=== PATIENT | male | born 1980 | race Caucasian/White ===

== ENCOUNTER 2019-03-03 15:29 | Emergency (ER) | payer SELFPAY ==
[~2019-03-03] VITALS: Ht 180 cm; Wt 97.9 kg
[2019-03-03] MEDS ORDERED: DEXAMETHASONE 4 MG/ML SDV (DECADRON) IM ONE (16:15)
[2019-03-03] MEDS ORDERED: DIAZEPAM 5 MG (VALIUM) TABLET PO ONE (16:15)
[2019-03-03] MEDS ORDERED: BUP/EPI 0.25% 1:200,000 (MARCAINE) 30 ML VIAL INJ ONE (16:15)
[2019-03-03] MEDS ORDERED: KETOROLAC 60 MG/2 ML VIAL IM ONE (16:15)
[2019-03-03] MEDS ORDERED: oxyCODONE/APAP 5/325MG (PERCOCET 5) TABLET PO ONE (16:15)
[2019-03-03] MEDS ORDERED: BUPIVACAINE 0.5% 30 ML (SENSORCAINE) VIAL ONE (16:17)
--- NOTE | 2019-03-03 16:28 | ED General ---
General Chief Complaint: Back Problems Stated Complaint: RT SIDE PAIN Nursing Triage Note: Was twisting two days ago and had sharp pain in his back. is having pain shooting down his R buttock into leg. Is rating pain at 10/10 and states he has been unable to sleep due to the pain Nursing Sepsis Screen: No Definite Risk History of Present Illness Date Seen by Provider: Mar 03, 2019 Time Seen by Provider: 16:22 Initial Comments Patient presenting to emergency department for evaluation of back pain that has been worsening since last Saturday. He said that he was trying to work on his car and he was kneeling and twisted his torso and felt a pain in his low back and it has been radiating down the back of his right leg since then. He has felt spasms in intense pain and has been unable to get comfortable despite trying Tylenol and ibuprofen. He has continued to work and he says he lifts heavy objects at work and has not been able to do very well his job so his boss did not want him to come back until he was seen. He denies any known trauma, just the overuse. He denies any unilateral weakness numbness tingling saddle anesthesia bowel or bladder incontinence. He says he has had this issue before and he was out of work for 2 weeks. He appears uncomfortable but is nontoxic with normal vital signs. Allergies and Home Medications Allergies Coded Allergies: No Known Drug Allergies (Unverified , 03/03/19) Patient Home Medication List Home Medication List Reviewed: Yes Review of Systems Review of Systems Constitutional: no symptoms reported Respiratory: no symptoms reported Cardiovascular: no symptoms reported Gastrointestinal: no symptoms reported Genitourinary: no symptoms reported Musculoskeletal: back pain Skin: no symptoms reported Psychiatric/Neurological: No Symptoms Reported All Other Systems Reviewed Negative Unless Noted: Yes Past Vgkjsbj-Sgrpjv-Azfxok Hx Patient Social History Recent Foreign Travel: No Contact w/Someone Who Travel: No Recent Infectious Disease Expo: No Physical Exam Vital Signs Vital Signs - First Documented 03/03/19 16:08 Temp 36.7 Pulse 101 Resp 26 B/P (MAP) 120/88 (99) Pulse Ox 100 Capillary Refill : Less Than 3 Seconds Height, Weight, BMI Height: '" Weight: lbs. oz. kg; 30.00 BMI Method: General Appearance: No Apparent Distress, WD/WN Neck: Non Tender, Supple Respiratory: No Respiratory Distress Cardiovascular: Regular Rate, Rhythm Gastrointestinal: Non Tender, Soft Back: No Vertebral Tenderness, Muscle Spasm (R lumbar paraspinal spasm and ttp.) Neurologic/Psychiatric: Alert, Oriented x3, No Motor/Sensory Deficits, Normal Mood/Affect, construction operations manager II-XII Norm as Tested Skin: Warm/Dry Procedures/Interventions Progress Right lumbar trigger point injection. Right L3-L4 and L4-L5 right paraspinal regions were cleansed with chlorhexidine and then approximately 4 cc of 0.5% Marcaine were injected into the 2 areas with no significant pain. No complications noted. Progress/Results/Core Measures Suspected Sepsis Recent Fever Within 48 Hours: No Infection Criteria Present: None New/Unexplained Altered Menta: No Sepsis Screen: No Definite Risk SIRS Temperature: Pulse: 101 Respiratory Rate: 26 Blood Pressure 120 /88 Mean: 99 Results/Orders My Orders Orders - CLAUDIA DENG DO Oxycodone/Apap 5/325mg Tablet (Percocet (03/03/19 16:15) Diazepam Tablet (Valium Tablet) (03/03/19 16:15) Ketorolac Injection (Toradol Injection) (03/03/19 16:15) Dexamethasone Injection (Decadron Inject (03/03/19 16:15) Bupivacaine 0.25% W/Epi Inj (Marcaine 0. (03/03/19 16:15) Bupivacaine 0.5% Injection (Sensorcaine (03/03/19 16:17) Vital Signs/I&O 03/03/19 16:08 Temp 36.7 Pulse 101 Resp 26 B/P (MAP) 120/88 (99) Pulse Ox 100 Capillary Refill : Less Than 3 Seconds Blood Pressure Mean: 99 POS Progress Note : Progress Note Patient with lumbar back pain with lumbar radiculopathy noted. No red flag signs or symptoms necessitating an emergent MRI. Patient was given Decadron Toradol Percocet and Valium with improvement in pain. I also did a trigger point injection in his low back. I will prescribe him morphine for pain told him to follow primary care provider within 2-3 days and come back to the ED sooner if worsening pain or new-onset weakness numbness tingling or other general concerns. Patient aware and agreeable with plan for discharge and verbalized understanding of the need for short-term follow-up and strict ED return precautions described as above. Departure Impression Primary Impression: Lumbar radiculopathy Additional Impression: Lumbar sprain Disposition: 01 HOME, SELF-CARE Condition: Stable Departure-Patient Inst. Referrals: NO,LOCAL PHYSICIAN (PCP) Primary Care Physician Patient Instructions: Radiculopathy (DC), Lumbar Muscle Strain (DC) Add. Discharge Instructions: All discharge instructions reviewed with patient and/or family. Voiced understanding. Take 600mg of ibuprofen every 6 hours and 650mg of tylenol every 6 hours. Use OTC lidocaine patches. Scripts Ondansetron (Ondansetron Odt) 4 Mg Tab.rapdis 4 MG PO Q6H PRN for NAUSEA/VOMITING-1ST LINE, #10 TAB Prov: CLAUDIA DENG DO 03/03/19 Morphine Sulfate (Morphine Sulfate) 15 Mg Tablet 15 MG PO TID PRN for PAIN-SEVERE for 7 Days, #10 TAB Prov: CLAUDIA DENG DO 03/03/19 Work/School Note: Work Release Form Date Seen in the Emergency Department: Mar 03, 2019 Return to Work: Mar 05, 2019 Restrictions: No Restrictions Restrictions: No heavy lifting over 10 pounds until cleared by your doctor CLAUDIA DENG DO Mar 03, 2019 16:28 POS
[2019-03-03] MEDS ORDERED: MORP15TA PO (16:33)
[2019-03-03] MEDS ORDERED: ONDA4TAB11 PO (16:33)
[2019-03-03 16:44] VITALS: BP 120/88
[2019-03-03] MEDS ORDERED: BUPIVACAINE 0.5% 30 ML (SENSORCAINE) VIAL INJ ONE (16:45)
== END 2019-03-03 16:45 | disposition home or self-care (01) ==
LOC: EDUNIT# 15:29 → ER FS 15:30
DX: S33.5XXA Sprain of ligaments of lumbar spine, initial encounter (principal); M54.16 Radiculopathy, lumbar region; X50.1XXA Overexertion from prolonged static or awkward postures, initial encounter
CPT/HCPCS: 96372; 99284

== ENCOUNTER 2019-03-06 15:23 | Observation (INO) | payer SELFPAY ==
[~2019-03-06] VITALS: Ht 177.8 cm; Wt 95.6 kg
[~2019-03-06 15:23] MED LIST: MORP15TA PO; ONDA4TAB11 PO
[2019-03-06] MEDS ORDERED: fentaNYL INJECTION 100 MCG/2 ML AMP IVP ONE (15:30)
--- NOTE | 2019-03-06 15:43 | ED Back Pain ---
General Stated Complaint: RT LEG PAIN History of Present Illness Date Seen by Provider: Mar 06, 2019 Time Seen by Provider: 15:38 Initial Comments 38-year-old male the history he gives me today is that about 5 days ago he was working on a gate and somehow maneuvered himself in such a way that he started to have pain from his lower back severely into the right leg to about the knee he was seen in this department 3 days ago and underwent local back injections and got IM medication for his back pain he was prescribed morphine which he says has been of no benefit today he didn't take anything and presented here rather dramatically he denies loss of bowel or bladder control says his left leg is functioning normally unclear if there is any problem with the strength in the right leg he won't use it because of the pain is curled up into a position on his right side Patient denies history of prior such difficulties, has never had back surgery says his only prior hospitalization as an adult was for an appendectomy t had a couple of hospitalizations as a child one for severe strep has no ongoing medical issues aside from this back and leg pain Allergies and Home Medications Allergies Coded Allergies: No Known Drug Allergies (Unverified , 03/03/19) Home Medications Morphine Sulfate 15 Mg Tablet, 15 MG PO TID PRN for PAIN-SEVERE Prescribed by: CLAUDIA DENG on 03/03/19 1633 Ondansetron 4 Mg Tab.rapdis, 4 MG PO Q6H PRN for NAUSEA/VOMITING-1ST LINE Prescribed by: CLAUDIA DENG on 03/03/19 1633 Patient Home Medication List Home Medication List Reviewed: Yes Review of Systems Constitutional: no symptoms reported; No fever EENTM: no symptoms reported Respiratory: no symptoms reported Cardiovascular: no symptoms reported Gastrointestinal: no symptoms reported Genitourinary: no symptoms reported Musculoskeletal: other (severe pain right lower back rad to knee) Skin: no symptoms reported Past Beqjqde-Sxqmzq-Alwrrz Hx Patient Social History Type Used: Cigarettes 2nd Hand Smoke Exposure: Yes Recent Foreign Travel: No Contact w/Someone Who Travel: No Recent Hopitalizations: No Seasonal Allergies Seasonal Allergies: No Past Medical History Surgeries: Yes Appendectomy Respiratory: No Cardiac: No Neurological: No Genitourinary: No Gastrointestinal: No Musculoskeletal: Yes Chronic Back Pain Endocrine: No HEENT: No Cancer: No Psychosocial: No Integumentary: No Physical Exam Vital Signs Vital Signs - First Documented 03/06/19 15:25 Temp 36.8 Pulse 75 Resp 22 B/P (MAP) 116/63 (80) Pulse Ox 99 O2 Delivery Room Air Capillary Refill : Height, Weight, BMI Height: '" Weight: lbs. oz. kg; 30.00 BMI Method: General Appearance: Moderate Distress HEENT: PERRL/EOMI Neck: Supple Cardiovascular: Regular Rate, Rhythm Respiratory: Lungs Clear Gastrointestinal: Non Tender, Soft Extremity: No Pedal Edema, Other (mild tenderness over right SI joint strong plantar and dorsiflexion bilaterally at the ankles muscle tone normal straight leg raising painful on right) Neurologic/Psychiatric: Alert, Oriented x3 Progress/Results/Core Measures Results/Orders Lab Results Laboratory Tests Test 03/06/19 15:43 Range/Units White Blood Count 10.6 4.3-11.0 10^3/uL Red Blood Count 5.07 4.35-5.85 10^6/uL Hemoglobin 14.0 13.3-17.7 G/DL Hematocrit 43 40-54 % Mean Corpuscular Volume 84 80-99 FL Mean Corpuscular Hemoglobin 28 25-34 PG Mean Corpuscular Hemoglobin Concent 33 32-36 G/DL Red Cell Distribution Width 13.5 10.0-14.5 % Platelet Count 416 H 130-400 10^3/uL Mean Platelet Volume 8.5 7.4-10.4 FL Neutrophils (%) (Auto) 65 42-75 % Lymphocytes (%) (Auto) 23 12-44 % Monocytes (%) (Auto) 10 0-12 % Eosinophils (%) (Auto) 2 0-10 % Basophils (%) (Auto) 1 0-10 % Neutrophils # (Auto) 6.9 1.8-7.8 X 10^3 Lymphocytes # (Auto) 2.4 1.0-4.0 X 10^3 Monocytes # (Auto) 1.0 0.0-1.0 X 10^3 Eosinophils # (Auto) 0.2 0.0-0.3 10^3/uL Basophils # (Auto) 0.1 0.0-0.1 10^3/uL Sodium Level 143 135-145 MMOL/L Potassium Level 3.7 3.6-5.0 MMOL/L Chloride Level 106 98-107 MMOL/L Carbon Dioxide Level 23 21-32 MMOL/L Anion Gap 14 5-14 MMOL/L Blood Urea Nitrogen 17 7-18 MG/DL Creatinine 0.86 0.60-1.30 MG/DL Estimat Glomerular Filtration Rate > 60 BUN/Creatinine Ratio 20 Glucose Level 143 H 70-105 MG/DL Calcium Level 9.3 8.5-10.1 MG/DL Corrected Calcium 9.2 8.5-10.1 MG/DL Total Bilirubin 0.2 0.1-1.0 MG/DL Aspartate Amino Transf (AST/SGOT) 10 5-34 U/L Alanine Aminotransferase (ALT/SGPT) 10 0-55 U/L Alkaline Phosphatase 59 40-136 U/L Total Protein 7.2 6.4-8.2 GM/DL Albumin 4.1 3.2-4.5 GM/DL My Orders Orders - ABDON FREITAS MD Iv Heplock-Insert (Order) (03/06/19 15:29) Cbc With Automated Diff (03/06/19 15:29) Comprehensive Metabolic Panel (03/06/19 15:29) Fentanyl Injection (Sublimaze Injection (03/06/19 15:30) Ct Lumbar Spine Wo (03/06/19 15:42) Hydromorphone Injection (Dilaudid Inject (03/06/19 16:15) Methylprednisolone Sod Succ (Solu-Medrol (03/06/19 16:15) Medications Given in ED Current Medications Medications Dose Ordered Sig/Yovanny Route Start Time Stop Time Status Last Admin Dose Admin Fentanyl Citrate 50 mcg ONCE ONCE IVP 03/06/19 15:30 03/06/19 15:32 DC 03/06/19 15:57 50 MCG Hydromorphone HCl 1 mg ONCE ONCE IV 03/06/19 16:15 03/06/19 16:16 DC 03/06/19 16:31 1 MG Vital Signs/I&O 03/06/19 15:25 Temp 36.8 Pulse 75 Resp 22 B/P (MAP) 116/63 (80) Pulse Ox 99 O2 Delivery Room Air Progress Progress Note : Progress Note Basic labs CBC and CMP are normal CT scan reading is as follows no acute osseous abnormality multiple multilevel disc bulges and Schmorl's nodes greater than expected for age multilevel foraminal stenosis most severe at L3-L4 on the right and L5-S1 on the left patient's symptoms would get seemed to correspond with the L3-L4 on the right Patient had no result from fentanyl Dilaudid 1 mg IV seemed to be somewhat helpful he appears that he is going to need hospitalization for pain control Departure Communication (Admissions) Time/Spoke to Admitting Phy: 17:[address] Reinoso hospitalist marketing communications manager will admit obs for pain control IV dilaudid Impression Primary Impression: Lumbar radiculopathy Disposition: ADMITTED INPATIENT Condition: Stable Admissions Decision to Admit Reason: Admit from ER (General) Decision to Admit/Date: Mar 06, 2019 Time/Decision to Admit Time: 17:10 Departure-Patient Inst. Referrals: NO,LOCAL PHYSICIAN (PCP) Primary Care Physician ABDON FREITAS MD Mar 06, 2019 15:43 POS
[2019-03-06 15:54] LABS: BASOPHILS % (AUTO) 1 % (0-10); EOSINOPHILS # (AUTO) 0.2 10^3/uL (0.0-0.3); EOSINOPHILS % (AUTO) 2 % (0-10); HEMATOCRIT 43 % (40-54); LYMPHOCYTES # (AUTO) 2.4 X 10^3 (1.0-4.0); LYMPHOCYTES % (AUTO) 23 % (12-44); MEAN CORPUSCULAR HEMOGLOBIN 28 PG (25-34); MEAN CORPUSCULAR HGB CONC 33 G/DL (32-36); MEAN CORPUSCULAR VOLUME 84 FL (80-99); MEAN PLATELET VOLUME 8.5 FL (7.4-10.4); MONOCYTES % (AUTO) 10 % (0-12); NEUTROPHILS # (AUTO) 6.9 X 10^3 (1.8-7.8); NEUTROPHILS % (AUTO) 65 % (42-75); PLATELET COUNT 416 10^3/uL (130-400); RED CELL DISTRIBUTION WIDTH 13.5 % (10.0-14.5); WHITE BLOOD COUNT 10.6 10^3/uL (4.3-11.0)
[2019-03-06 15:55] LABS: BASOPHILS # (AUTO) 0.1 10^3/uL (0.0-0.1)
[2019-03-06] MEDS ORDERED: HYDROmorphone 2 MG/ML VIAL (DILAUDID) IV ONE (16:15)
[2019-03-06] MEDS ORDERED: methylPREDNISolone SOD SUCC 500 MG in NS (IVPB) 50 ML IV ONE (16:15)
--- NOTE | 2019-03-06 16:27 | Diagnostic Imaging Report ---
PROCEDURE: CT lumbar spine without contrast. TECHNIQUE: Multiple contiguous axial images were obtained through the lumbar spine without the use of intravenous contrast. Sagittal and coronal reformations were then performed. Auto Exposure Controls were utilized during the CT exam to meet ALARA standards for radiation dose reduction. INDICATION: Low back pain radiating into the right leg for five days. COMPARISON: None. FINDINGS: Alignment of the lumbar spine is normal with no spondylolisthesis. There are multilevel Schmorl's nodes, at the L2, L3, and L4 vertebral levels. The vertebral body heights are otherwise preserved. There is disc height loss at L2-L3 and L4-L5. No acute fracture is seen in the lumbar spine. There are disc bulges at multiple levels throughout the lumbar spine, most notable at L3-L4 and L4-L5. A small central disc protrusion is also seen at L4-L5. No high-grade spinal canal stenosis is appreciated. There is severe bilateral foraminal stenosis at L3-L4, right worse than left. There is moderate foraminal stenosis at L4-L5 bilaterally. There is mild right and marked left foraminal stenosis at L5-S1. IMPRESSION: 1. No acute osseous abnormality is seen in the lumbar spine. 2. Multilevel disc bulges and Schmorl's nodes, somewhat greater than expected for age. This results in multilevel foraminal stenosis, most severe at L3-L4 on the right and L5-S1 on the left. Dictated by: Dictated on workstation # [id number]
[2019-03-06 16:37] LABS: ALANINE AMINOTRANSFERASE 10 U/L (0-55); ALBUMIN 4.1 GM/DL (3.2-4.5); ALKALINE PHOSPHATASE 59 U/L (40-136); BILIRUBIN,TOTAL 0.2 MG/DL (0.1-1.0); BUN/CREATININE RATIO 20; CALCIUM 9.3 MG/DL (8.5-10.1); CARBON DIOXIDE 23 MMOL/L (21-32); CHLORIDE 106 MMOL/L (98-107); CREATININE SERUM 0.86 MG/DL (0.60-1.30); GFR ESTIMATED > 60; GLUCOSE 143 MG/DL (70-105); POTASSIUM 3.7 MMOL/L (3.6-5.0); SODIUM 143 MMOL/L (135-145); TOTAL PROTEIN 7.2 GM/DL (6.4-8.2)
[2019-03-06] MEDS ORDERED: methylPREDNISolone 125 MG (Solu-MEDROL) VIAL ONE (17:28)
[2019-03-06] MEDS ORDERED: NS (IVPB) 100 ML ONE (17:29)
--- NOTE | 2019-03-06 19:20 | NUR ---
MEDARDO HIGUERA admitted to room 407-1, with an admitting diagnosis of intractable back pain, on 03/06/19 from [facility] ed via ems cot, accompanied by [facility] ems.MEDARDO HIGUERA introduced to surroundings, call light, bed controls, phone, TV, temperature control, lights, meal times, smoking policy, visitor policy, side rail policy, bathrooms and showers. Patient Rights given to patient in the handbook. MEDARDO HIGUERA verbalizes understanding that [facility] is not responsible for the loss or damage to any personal effects or valuables that are kept in the patients possessions during their hospitalization. The patient's plan of care was discussed with the pt, he agrees & denies any questions or concerns at this time. MEDARDO HIGUERA verbalizes understanding of Interdisciplinary Patient Education.
--- NOTE | 2019-03-06 19:20 | NUR ---
pt refused flu vaccine at time of admission-pt states that he does not want it at all during this admission
[2019-03-06] MEDS ORDERED: CATHETER FLUSH 10 ML SYR IV PRN (19:30)
[2019-03-06] MEDS: NS IV 1000 ML 1,000 ML IV SCH (19:55)
[2019-03-06] MEDS: HYDROmorphone 2 MG/ML VIAL (DILAUDID) IV PRN ×2 (19:55→21:55)
[2019-03-06 20:00] VITALS: BP 121/56
[2019-03-06 23:59] VITALS: BP 116/67
[2019-03-07] MEDS: HYDROmorphone 2 MG/ML VIAL (DILAUDID) IV PRN ×2 (00:35→04:39)
[2019-03-07 03:28] VITALS: BP 111/55
[2019-03-07] MEDS: NS IV 1000 ML 1,000 ML IV SCH ×2 (03:31→11:38)
[2019-03-07] MEDS ORDERED: ACETAMINOPHEN 325 MG TABLET PO PRN (08:00)
[2019-03-07] MEDS ORDERED: ANTACID SUSP 30 ML UDC (MYLANTA) PO PRN (08:00)
[2019-03-07] MEDS ORDERED: diphenhydrAMINE 50 MG/ML INJ (BENADRYL) IVP PRN (08:00)
[2019-03-07] MEDS ORDERED: MELATONIN 3 MG TABLET PO PRN (08:00)
[2019-03-07] MEDS ORDERED: BISACODYL 10 MG SUPP (DULCOLAX) PR PRN (08:00)
[2019-03-07] MEDS ORDERED: ENOXAPARIN 40 MG/0.4 ML (LOVENOX) SYR SC SCH (08:00)
[2019-03-07] MEDS ORDERED: POLYETHYLENE GLYCOL 17 GM (MIRALAX) PACK PO PRN (08:00)
[2019-03-07] MEDS ORDERED: HYDROmorphone 2 MG/ML VIAL (DILAUDID) IV PRN (08:00)
[2019-03-07] MEDS ORDERED: ONDANSETRON 4 MG (ZOFRAN) ORAL DISSOLVE TAB PO PRN (08:00)
[2019-03-07] MEDS ORDERED: ONDANSETRON 4 MG/2 ML (SDV) Z0FRAN IV PRN (08:00)
[2019-03-07 08:18] VITALS: BP 131/71
[2019-03-07] MEDS ORDERED: SENNOSIDES 8.6 MG (SENOKOT) TAB PO SCH (09:00)
[2019-03-07] MEDS ORDERED: DOCUSATE SODIUM 100 MG (COLACE) CAP PO SCH (09:00)
[2019-03-07] MEDS: GABAPENTIN 100 MG (NEURONTIN) CAP PO SCH ×2 (09:21→11:38)
[2019-03-07 11:14] VITALS: BP 126/60
--- NOTE | 2019-03-07 11:40 | Physical Therapy Evaluation ---
PT Evaluation-General Medical Diagnosis Admission Date Mar 06, 2019 at 17:30 Medical Diagnosis: intractable back pain Onset Date: Mar 06, 2019 Therapy Diagnosis Therapy Diagnosis: limited mobility Precautions Precautions/Isolations: Standard Precautions Weight Bear Status Right Lower Extremity: Right Weight Bearing/Tolerated Left Lower Extremity: Left Weight Bearing/Tolerated Referral Physician: Arleth Reason for Referral: Evaluation/Treatment Medical History Current History Working on a cabinet, turned and felt a sharp pain in the back and (R) LE. Could not stand or walk. Prior hx of low back pain 1-2 yrs ago. Reviewed History: Yes Social History Home: Single Level Current Living Status: Significant Other Prior Prior Level of Function SCALE: Activities may be completed with or without assistive devices. 5-Dvfqjvtlxt-eevuqnc completes the activity by him/herself with no assistance from a helper. 5-Set-up or Clean-up Assistance-helper sets up or cleans up; patient completes activity. [place] assists only prior to or following the activity. 4-Supervision or Touching Assistance-helper provides verbal cues and/or touching/steadying and/or contact guard assistance as patient completes activity. Assistance may be provided throughout the activity or intermittently. 3-Partial/Moderate Assistance-helper does LESS THAN HALF the effort. [place] lifts, holds or supports trunk or limbs, but provides less than half the effort. 2-Substantial/Maximal Assistance-helper does MORE THAN HALF the effort. [place] lifts or holds trunk or limbs and provides more than half the effort. 9-Nuzdpaeyw-cqsdni does ALL the effort. Patient does none of the effort to complete the activity. Or, the assistance of 2 or more helpers is required for the patient to complete the activity. If activity was not attempted, code reason: 7-Patient Refused. 9-Not Applicable-not attempted and the patient did not perform the activity before the current illness, exacerbation or injury. 10-Not Attempted due to Environmental Limitations-(lack of equipment, weather restraints, etc.). 88-Not Attempted due to Medical Conditions or Safety Concerns. Bed Mobility: 7 Transfers (B,C,W/C): 7 Gait: 7 Stairs: 7 Indoor Mobility (Ambulation): Independent Stairs: Independent Prior Devices Use: None PT Evaluation-Current Subjective (R) lumbar soreness, with no (R) LE pain elicited with AROM of the (B) LEs. Pain Numeric Pain Scale: 2 Location: Right Location Body Site: Back Pain Description: Ache Pt/Family Goals Return home Objective Patient Orientation: Person, Place, Time, Situation Problem Solving: Good ROM/Strength ROM Upper Extremities WFL ROM Lower Extremities WFL Strength Upper Extremities WFL Strength Lower Extremities WFL Neuromuscular (Tone, Coordination, Reflexes) Normal (B) UE and LE tone, normal reflexes, and intact sensation for (B) LEs. Sensory Vision: Wears Glasses Hearing: Functional Hand Dominance: Right Sensation Right Upper Extremit: Intact Sensation Left Upper Extremity: Intact Sensation Right Lower Extremit: Intact Sensation Left Lower Extremity: Intact Transfers Roll Left to Right (QC): 7 Sit to Lying (QC): 7 Lying to Sitting/Side of Bed(Q: 7 Sit to Stand (QC): 7 Gait Does the Patient Walk?: Yes Mode of Locomotion: Walk Anticipated Mode of Locomotion: Walk Distance: 3=150 ft Walk 10 feet (QC): 7 Walk 50 ft with 2 Turns(QC): 7 Walk 150 ft (QC): 7 Gait Assistive Device: None Wheelchair Training Does the Pt Use a Wheelchair?: No Balance Sitting Static: Normal Sitting Dynamic: Normal Standing Static: Normal Standing Dynamic: Good Assessment/Needs Pt was able to perform bed mobility, transfers, and ambulation (I) without eliciting lumbar pain. Rehab Potential: Good PT Short Term Goals Short Term Goals Time Frame: Mar 07, 2019 Additional Short Term Goals Able to continue with (I) mobility without further lumbar pain. PT Plan Treatment/Plan Treatment Plan: Discontinue PT, goals met Treatment Duration: Mar 07, 2019 Frequency: Estimated Hrs Per Day: .25 hour per day Patient and/or Family Agrees t: Yes Evaluate and discharged with pt (I) during all activity. Discharge Recommendations Plan Pt to benefit from a follow up visit with PT for back, core, and stretching program to be performed (I). Therapy Discharge Recommendati: Post Acute PT Time/GCodes Time In: 904 Time Out: 929 Total Billed Treatment Time: 25 Total Billed Treatment 1, osiris 25 YISEL WELDON PT Mar 07, 2019 11:40 POS
[2019-03-07] MEDS ORDERED: GABA-486 PO (12:36)
[2019-03-07] MEDS ORDERED: OXYC10TA7 PO (12:36)
[2019-03-07] MEDS ORDERED: ACET-2267 PO (12:36)
--- NOTE | 2019-03-07 12:41 | Discharge Summary ---
Discharge Summary Hospital Course Was the Problem List Reviewed?: Yes Problems/Dx: (1) Herniated lumbar intervertebral disc Status: Acute Final Diagnosis: Herniated lumbar intervertebral disc Hospital Course Date of Admission: Mar 06, 2019 at 17:30 Admission Diagnosis : Intractable back pain Family Physician/Provider: Date of Discharge: 03/07/19 Discharge Diagnosis: Herniated lumbar intervertebral disc Hospital Course: Sabino Ro is a 38yoM who presented to the ER in [place] with intractable back pain. He had been prescribed opiates for the pain but this was not helping. He was found to have multiple disc herniations in his lumbar spine. He was treated with pain medications and physical therapy and his pain resolved prior to discharge. He was started on scheduled Tylenol and Gabapentin with as needed Oxycodone. He is scheduled to establish with a primary care provider in [place]. He will continue physical therapy as an outpatient. Labs and Pending Lab Test: Laboratory Tests 03/06/19 15:43: White Blood Count 10.6, Red Blood Count 5.07, Hemoglobin 14.0, Hematocrit 43, Mean Corpuscular Volume 84, Mean Corpuscular Hemoglobin 28, Mean Corpuscular Hemoglobin Concent 33, Red Cell Distribution Width 13.5, Platelet Count 416H, Mean Platelet Volume 8.5, Neutrophils (%) (Auto) 65, Lymphocytes (%) (Auto) 23, Monocytes (%) (Auto) 10, Eosinophils (%) (Auto) 2, Basophils (%) (Auto) 1, Neutrophils # (Auto) 6.9, Lymphocytes # (Auto) 2.4, Monocytes # (Auto) 1.0, Eosinophils # (Auto) 0.2, Basophils # (Auto) 0.1, Sodium Level 143, Potassium Level 3.7, Chloride Level 106, Carbon Dioxide Level 23, Anion Gap 14, Blood Urea Nitrogen 17, Creatinine 0.86, Estimat Glomerular Filtration Rate > 60, BUN/Creatinine Ratio 20, Glucose Level 143H, Calcium Level 9.3, Corrected Calcium 9.2, Total Bilirubin 0.2, Aspartate Amino Transf (AST/SGOT) 10, Alanine Aminotransferase (ALT/SGPT) 10, Alkaline Phosphatase 59, Total Protein 7.2, Albumin 4.1 Home Meds Active Gabapentin 100 Mg Capsule 100 Mg PO Q8H 30 Days Oxycodone HCl 10 Mg Tablet 10 Mg PO Q4H PRN 7 Days Tylenol Extra Strength (Acetaminophen) 500 Mg Tablet 1,000 Mg PO TID 30 Days Ondansetron Odt (Ondansetron) 4 Mg Tab.rapdis 4 Mg PO Q6H PRN Morphine Sulfate 15 Mg Tablet 15 Mg PO TID PRN 7 Days Assessment/Pt Instructions Take medications as prescribed. Do not operative heavy machinery while using Gabapentin and Oxycodone. Participate with physical therapy. Establish with a primary care physician in [place]. Discharge Instructions Discharge Diet: No Restrictions Activity as Tolerated: Yes Discharge Physical Examination General Appearance: Alert, Oriented X3, Cooperative, No Acute Distress HEENT: Atraumatic, EOMI, Mucous Memb Moist/[place] Respiratory: Clear to Auscultation, Normal Air Movement Cardiovascular: Regular Rate, Normal S1, Normal S2, No Murmurs Abdominal: Normal Bowel Sounds, Soft, No Tenderness Extremities: No Edema, No Tenderness/Swelling Skin: No Rashes, No Significant Lesion Neuro: Normal Speech, Strength at 5/5 X4 Ext, Normal Tone, Sensation Intact Psych/Mental Status: Mental Status NL, Mood NL Allergies: Coded Allergies: No Known Drug Allergies (Unverified , 03/03/19) Discharge Summary Date of Admission Mar 06, 2019 at 17:30 Date of Discharge Discharge Date: Mar 07, 2019 Discharge Time: 12:41 Admission Diagnosis Intractable back pain Discharge Diagnosis (1) Herniated lumbar intervertebral disc Status: Acute Clinical Quality Measures DVT/VTE Risk/Contraindication: Risk Factor Score Per Nursin RFS Level Per Nursing on Admit: 2=Moderate SHAMEKA TRACY MD Mar 07, 2019 12:41 POS
--- OUTSIDE RECORDS SUMMARY | 2019-03-30 15:01 | XMS REPORT | Continuity of Care Document ---
Author Organization Unknown POS Address Unknown SP Phone Unavailable SP Allergies Active Description Code Type Severity POS Reaction Onset Reported/Identified POS to Patient Clinical Status POS Yes No Known Drug Allergies [id number] Drug SP Unknown N/A 03/03/2019 SP SP Medications There is no data. Problems Date Dx Coded Attending Type Code POS Diagnosed By POS 03/03/2019 CLAUDIA DENG DO Ot M54.16 SP RADICULOPATHY, LUMBAR REGION SP 03/03/2019 CLAUDIA DENG DO Ot M54 .9 SP UNSPECIFIED SP 03/03/2019 CLAUDIA DENG DO Ot S33.5XXA SP SPRAIN OF LIGAMENTS OF LUMBAR SPINE, INI SP 03/03/2019 CLAUDIA DENG DO Ot X50.1XXA SP OVEREXERTION FROM PROLONGED STATIC OR AW SP 03/07/2019 SHAMEKA TRACY MD Ot G89. 29 SP CHRONIC PAIN SP 03/07/2019 SHAMEKA TRACY MD Ot M51. 16 SP DISC DISORDERS W RADICULO SP 03/07/2019 SHAMEKA TRACY MD, Ot M54. 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 29 SP CHRONIC PAIN SP 03/07/2019 SHAMEKA TRACY MD Ot M51. 16 SP DISC DISORDERS W RADICULO SP 03/07/2019 SHAMEKA TRACY MD Ot M54. 5 SP BACK PAIN SP 03/07/2019 SHAMEKA TRACY MD Ot Z79.891 SP HALFWAY (CURRENT) USE OF OPIATE ANALGE SP Procedures There is no data. Results Test Result Range POS Complete blood count (CBC) with automate d white blood cell (WBC) differential - POS 15:43 Blood leukocytes automated count (number/volume) 10.6 10*3/uL POS 4.3-11.0 SP Blood erythrocytes automated count (number/volume) 5.07 10*6/uL SP 4.35-5.85 SP Venous blood hemoglobin measurement (mass/volume) 14.0 g/dL SP17.7 Blood hematocrit (volume fraction) 43 % 40-54 SP Automated erythrocyte mean corpuscular volume 84 [ foz_us] SP99 Automated erythrocyte mean corpuscular h emoglobin (mass per erythrocyte) SP 28 pg 25-34 SP Automated erythrocyte mean corpuscular h emoglobin concentration measurement SP 33 g/dL 32-36 SP Automated erythrocyte distribution width ratio 13. 5 % 10.0- SP Automated blood platelet count (count/volume) 416 10*3/uL SP400 Automated blood platelet mean volume measurement 8.5 [foz_us] SP 7.4-10.4 SP Automated blood neutrophils/100 leukocytes 65 % 42-75 SP Automated blood lymphocytes/100 leukocytes 23 % 12-44 SP Blood monocytes/100 leukocytes 10 % 0-12 SP Automated blood eosinophils/100 leukocytes 2 % 0-10 SP Automated blood basophils/100 leukocytes 1 % 0-10 SP Blood neutrophils automated count (number/volume) 6.9 10*3 SP7.8 Blood lymphocytes automated count (number/volume) 2.4 10*3 SP4.0 Blood monocytes automated count (number/volume) 1. 0 10*3 SP1.0 Automated eosinophil count 0.2 10*3/uL 0 .0-0.3 SP Automated blood basophil count (count/volume) 0.1 10*3/uL SP0.1 Comprehensive metabolic panel - 03/06/19 15:43 POS Serum or plasma sodium measurement (moles/volume) 143 mmol/L SP 135-145 SP Serum or plasma potassium measurement (moles/volume) 3.7 mmol/L SP 3.6-5.0 SP Serum or plasma chloride measurement (moles/volume) 106 mmol/L SP 98-107 SP Carbon dioxide 23 mmol/L 21-32 SP Serum or plasma anion gap determination (moles/volume) 14 mmol/L SP 5-14 SP Serum or plasma urea nitrogen measurement (mass/volume ) 17 mg/dL SP 7-18 SP Serum or plasma creatinine measurement (mass/volume) 0.86 mg/dL SP 0.60-1.30 SP Serum or plasma urea nitrogen/creatinine mass ratio 20 NRG SP Serum or plasma creatinine measurement w ith calculation of estimated glomerular SP rate > NRG SP Serum or plasma glucose measurement (mass/volume) 143 mg/dL SP105 Serum or plasma calcium measurement (mass/volume) 9.3 mg/dL SP10.1 Serum or plasma total bilirubin measurement (mass/volu me) 0.2 mg/dL SP 0.1-1.0 SP Serum or plasma alkaline phosphatase dee surement (enzymatic activity/volume) SP 59 U/L 40-136 SP Serum or plasma aspartate aminotransfera se measurement (enzymatic SP 10 U/L 5-34 SP Serum or plasma alanine aminotransferase measurement (enzymatic activity/volume) SP 10 U/L 0-55 SP Serum or plasma protein measurement (mass/volume) 7.2 g/dL SP8.2 Serum or plasma albumin measurement (mass/volume) 4.1 g/dL SP4.5 CALCIUM CORRECTED 9.2 mg/dL 8.5-10.1 SP Encounters ACCT No. Visit Date/Time Discharge Status POS Pt. Type Provider Facility Loc./Un it POS Complaint POS [id number] 03/24/2019 17:00:00 03/24/2019 23:59: 59 CLS SP Outpatient [facility] SP [id number] 03/06/2019 17:30:00 13:15:00 SP DIS Inpatient SHAMEKA TRACY MD [facility] 4TH INTRACTABLE BACK PAIN SP [id number] 03/03/2019 15:30:00 16:45:00 SP DIS Emergency CLAUDIA DENG DO [facility] ER FS RT SIDE PAIN SP [id number] 04/01/2019 13:15:00 P EN SP MECHE DOZIER [facility] SP RAD ACUTE RIGHT-SIDED LOW BACK P AIN SP [id number] 03/03/2019 16:12:00 SP Registration SP
--- OUTSIDE RECORDS SUMMARY | 2019-03-30 18:23 | XMS REPORT | Continuity of Care Document ---
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 29 SP CHRONIC PAIN SP 03/07/2019 SHAMEKA TRACY MD Ot M51. 16 SP DISC DISORDERS W RADICULO SP 03/07/2019 SHAMEKA TRACY MD Ot M54. 5 SP BACK PAIN SP 03/07/2019 SHAMEKA TRACY MD Ot Z79.891 SP FPC (CURRENT) USE OF OPIATE ANALGE SP Procedures [...] Provider Facility Loc./Un it POS Complaint POS [id number] 03/24/2019 17:00:00 03/24/2019 23:59: 59 CLS SP [facility] SP [id number] 03/06/2019 17:30:00 13:15:00 SP DIS Inpatient SHAMEKA TRACY MD [facility] 4TH INTRACTABLE BACK PAIN SP [id number] 03/03/2019 15:30:00 16:45:00 SP DIS Emergency CLAUDIA DENG DO [facility] ER FS RT SIDE PAIN SP [id number] 04/01/2019 13:15:00 P EN SP MECHE DOZIER [facility] SP RAD ACUTE RIGHT-SIDED LOW BACK P AIN SP [id number] 03/03/2019 16:12:00 SP Registration SP
== END 2019-03-07 12:33 | disposition home or self-care (01) ==
LOC: EDUNIT# 15:23 → ER FS 15:24 → UNDOADMOB 17:30 → 4TH 17:30 → EDPENDDISTM 03-07 12:30 → UNDODISOB 03-07 13:15
PROVIDERS: ADMIT Internal Medicine; ATTEND Internal Medicine
DX: M51.16 Intervertebral disc disorders with radiculopathy, lumbar region (principal); G89.29 Other chronic pain; M54.5 Low back pain; Z79.891 Long term (current) use of opiate analgesic
CPT/HCPCS: 36415; 72131; 80053; 85025; 96365; 96375; G0378

== ENCOUNTER → 2019-04-01 | Outpatient (CLI) | payer SELFPAY ==
[~2019-04-01] MED LIST changes: +ACET-2267 PO; +GABA-486 PO; +OXYC10TA7 PO
--- NOTE | 2019-04-01 14:56 | Diagnostic Imaging Report ---
PROCEDURE: MRI lumbar spine. TECHNIQUE: Multiplanar, multisequence MRI of the lumbar spine was performed without contrast. INDICATION: Low back pain. COMPARISON: CT lumbar spine without contrast 03/06/2019. FINDINGS: There are five lumbar-type vertebral bodies. Benign hemangiomas in the L3 and L4 vertebral bodies. Large Schmorl's nodes in the superior endplates of L2 on L3. Vertebral body heights preserved. No abnormal signal in the conus which terminates at L1. Normal morphology of the cauda equina. Visualized abdominal and pelvic contents are unremarkable. L1-L2: Left paracentral disc extrusion with superior migration results in moderate left lateral recess narrowing. Ligamentous hypertrophy also contributes to mild spinal canal narrowing. No neural foraminal narrowing. L2-L3: Annular disc bulge and ligamentous hypertrophy result in mild spinal canal and bilateral lateral recess narrowing. Mild bilateral neural foraminal narrowing. L3-L4: No substantial spinal canal or lateral recess narrowing. Disc space height loss and facet arthropathy result in moderate to severe bilateral neural foraminal narrowing. L4-L5: Posterior disc osteophyte complex results in severe left and moderate right lateral recess narrowing. Mild spinal canal narrowing. Moderate bilateral neural foraminal narrowing. L5-S1: No substantial spinal canal or lateral recess narrowing. Mild bilateral neural foraminal narrowing. IMPRESSION: 1. Spondylotic changes result in scattered high-grade lateral recess and neural foraminal narrowing as above. No high-grade spinal canal narrowing. 2. No acute osseous or ligamentous findings. Dictated by: Dictated on workstation # [id number]
== END ==
LOC: RAD 12:44
PROVIDERS: ATTEND Nurse Practitioner Family
DX: M48.07 Spinal stenosis, lumbosacral region (principal); M47.816 Spondylosis without myelopathy or radiculopathy, lumbar region; M25.78 Osteophyte, vertebrae; M46.86 Other specified inflammatory spondylopathies, lumbar region; M51.16 Intervertebral disc disorders with radiculopathy, lumbar region
CPT/HCPCS: 72148